=== PATIENT | female | born 1990 | race Caucasian/White ===

== ENCOUNTER 2022-03-28 21:11 | Emergency (ER) | payer OTHER, SELFPAY ==
[2022-03-28 21:31] VITALS: BP 102/58; PULSE 85; RESP 18; TEMP 36.6; O2SAT 98; BMI 26.2
--- NOTE | 2022-03-28 21:38 | ED_ITS ---
HPI - Headache General Chief Complaint: Headache Stated Complaint: migraine, something going on with rt side of body Time Seen by Provider: 03/28/22 21:38 Source: patient Mode of arrival: Ambulatory Limitations: no limitations History of Present Illness HPI Narrative: Patient is a 32-year-old female. She has had complex migraines in the past but her last migraine headache was several years ago. She states that earlier today she was sitting in a nail salon getting her nails did when she states that she started to become lightheaded. She states that she passed out. She thinks she was out for several minutes. Had no prodromal symptoms. Fully recovered quickly afterwards. Completed the process of getting her nails did. He states that since that time she has had periodically episodes where her right arm would go numb and also her right upper leg. She is also having a left-sided headache. Related Data Allergies Allergy/AdvReac Type Severity Reaction Status Date / Time Sulfa (Sulfonamide Allergy Verified 03/28/22 21:35 Antibiotics) Review of Systems Review of Systems ROS Unobtainable: All systems reviewed & are unremarkable except as noted in HPI and below Patient History Medical History Migraine headache Social History (Updated 03/29/22 @ 04:24 by Eugenio Baum DO) lives independently: Yes Exam Initial Vital Signs Initial Vital Signs: Vital Signs Temperature 97.9 F 03/28/22 21:31 Pulse Rate 85 03/28/22 21:31 Respiratory Rate 18 03/28/22 21:31 Blood Pressure 102/58 L 03/28/22 21:31 Pulse Oximetry 98 03/28/22 21:31 Oxygen Delivery Method 03/28/22 21:31 Const General: cooperative and comfortable HENMT Head: normal to inspection and normocephalic Face and sinus: normal facial exam Eyes General: Yes appearance normal, both eyes and all related structures Pupils: PERRL EOM: EOM intact bilaterally Resp Effort & Inspection: normal respiratory effort Auscultation: clear to auscultation bilaterally Cardio Rate: regular rate Rhythm: regular rhythm GI Inspection: normal to inspection Skin General: no rashes or lesions noted Neuro General: patient alert, patient awake, patient oriented x3, tone normal and moves all extremities Cranial Nerves: CN's II-XI intact bilaterally Cognition: normal cognition Speech: speech normal Gait: normal gait Motor: muscle tone normal throughout Sensory Exam: other (Decreased sensation light touch to right and) Extrem General: normal to inspection and capillary refill normal Psych Appearance: grossly normal and well kempt Scores GCS Laura coma scale eye opening: Spontaneous [place] coma scale verbal response: Orientated Laura coma scale motor response: Obey commands [place] coma scale total score: 15 Course Orders Ordered: ED Orders 03/28/22 21:39 CT head/brain wo con Stat Discontinued Medications Diphenhydramine HCl (Diphenhydramine 50 Mg/Ml Vial) 25 mg IV NOW ONE Stop: 03/28/22 21:39 Last Admin: 03/28/22 21:44 Dose: 25 mg Documented By: EB Sodium Chloride (Normal Saline 0.9%) 1,000 mls @ 1,000 mls/hr IV BOLUS ONE Stop: 03/28/22 22:37 Last Admin: 03/28/22 21:44 Dose: 1,000 mls/hr Documented By: EB Ketorolac Tromethamine (Ketorolac 30 Mg/Ml Vial) 30 mg IV NOW ONE Stop: 03/28/22 21:39 Last Admin: 03/28/22 21:44 Dose: 30 mg Documented By: EB Metoclopramide HCl (Metoclopramide 10 Mg/2 Ml Inj) 10 mg IV NOW ONE Stop: 03/28/22 21:39 Last Admin: 03/28/22 21:44 Dose: 10 mg Documented By: EB Vital Signs Vital signs: Vital Signs - 8 hr 03/28/22 21:31 03/28/22 23:29 Temperature 97.9 F Pulse Rate 85 67 Respiratory Rate 18 18 Blood Pressure 102/58 L 86/56 L Pulse Oximetry 98 98 Oxygen Delivery Method Room Air Room Air MDM - Headache Imaging Data CT scan - head: Radiologist's Impression: [address] [address] [address] Scan Report Signed Patient: Hayley Iyer MR#: [id number] : 1990 Acct:[id number] Age/Sex: 32 / F Date of Service: 03/28/22 Loc: ED Accession Number: [id number] ?? Procedure: CT head/brain wo con Ordering Provider: Eugenio Baum D.O. PROCEDURE:? CT HEAD/BRAIN WO CON ? INDICATIONS:? Headache with right-sided numbness ? TECHNIQUE:? Noncontrast 4.5 mm thick angled axial sections acquired from the foramen magnum to the vertex, with coronal and sagittal reformats.? For radiation dose reduction, the following was used:? automated exposure control, adjustment of mA and/or kV according to patient size.? ? COMPARISON:? None. ? FINDINGS:? Image quality:? Excellent.? ? CSF spaces:? Basal cisterns are patent.? No extra-axial fluid collections.? Ventricles are normal in size and shape.? ? Brain:? No intracranial hemorrhage, mass, or mass effect.? Herrera-white matter interface appears preserved.? ? Skull and face:? Calvarium and visualized facial bones are intact, without suspicious lesions.? ? Sinuses:? Visualized sinuses demonstrate mucosal thickening within the ethmoid and maxillary sinuses.? Mastoid air cells are clear. ? IMPRESSION:? ? 1. No acute intracranial abnormality.? ? ? Dictated by: Antoni Khan M.D. on 03/28/2022 at 22:12 ? ? Approved by: Antoni Khan M.D. on 03/28/2022 at 22:13?? MDM Narrative Medical decision making narrative: Patient's symptoms from earlier today are circumferential tingling to her right upper extremity from her shoulders to her hand and also circumferential tingling from her hip to her knees in her right lower extremity. She is not currently having the symptoms. Do have low suspicion for CVA/TIA given the nature of her presenting symptoms. The tingling does not follow any specific nerve distribution and she is currently not having any symptoms except for subjective decreased sensation to her right hand compared to the left. Her head CT is negative. Her headache is improved after medications. I do suspect this is complex migraine. Will hold on further workup for now. She was given return precautions. She expressed understanding and agreement. Discharge Plan Departure Patient Disposition: Home Clinical Impression: Headache Instructions: DI for Headache Activity Restrictions/Additional Instructions: Recommend that you contact your primary doctor for a follow-up. Continue all medications as directed. Return to the emergency department for any new or worsening symptoms. Visit Report Forms: Patient Portal/API
--- NOTE | 2022-03-28 21:39 | DI.CT.S_ITS ---
PROCEDURE: CT HEAD/BRAIN WO CON INDICATIONS: Headache with right-sided numbness TECHNIQUE: Noncontrast 4.5 mm thick angled axial sections acquired from the foramen magnum to the vertex, with coronal and sagittal reformats. For radiation dose reduction, the following was used: automated exposure control, adjustment of mA and/or kV according to patient size. COMPARISON: None. FINDINGS: Image quality: Excellent. CSF spaces: Basal cisterns are patent. No extra-axial fluid collections. Ventricles are normal in size and shape. Brain: No intracranial hemorrhage, mass, or mass effect. Herrera-white matter interface appears preserved. Skull and face: Calvarium and visualized facial bones are intact, without suspicious lesions. Sinuses: Visualized sinuses demonstrate mucosal thickening within the ethmoid and maxillary sinuses. Mastoid air cells are clear. IMPRESSION: 1. No acute intracranial abnormality. Dictated by: Antoni Khan M.D. on 03/28/2022 at 22:12 Approved by: Antoni Khan M.D. on 03/28/2022 at 22:13
[2022-03-28] MEDS: diphenhydrAMINE 50 MG/ML VIAL 25 MG IV (21:44)
[2022-03-28] MEDS: METOCLOPRAMIDE 10 MG/2 ML INJ IV (21:44)
[2022-03-28] MEDS: KETOROLAC 30 MG/ML VIAL IV (21:44)
[2022-03-28] MEDS: SODIUM CHLORIDE 0.9% 1,000 ML 1000 ML IV (21:44)
[2022-03-28 23:29] VITALS: BP 86/56; PULSE 67; RESP 18; O2SAT 98
== END 2022-03-28 23:30 | disposition home or self-care (01) ==
PROVIDERS: Emergency Provider Emergency Medicine
DX: R51.9 Headache, unspecified (principal); R42 Dizziness and giddiness
CPT/HCPCS: 36415; 70450; 96374; 96375; 99284; J1200; J1885; J2765